=== PATIENT | male | born 1965 | race Caucasian/White ===

== ENCOUNTER → 2016-04-13 | Outpatient (CLI) | payer BC, OTHER ==
--- NOTE | 2016-04-14 02:44 | REP ---
Clinical: Pain. Technique: AP, lateral, bilateral oblique views of the right foot. Findings: Age-related degenerative changes primarily involving the phalanges and interphalangeal joints noted. Findings include extension at the metatarsophalangeal joints consistent with mild hammertoe deformity. No acute or healed fracture/dislocation identified. No significant soft tissue swelling. No subcutaneous emphysema or radiodense foreign body. Impression: Age-related degenerative changes as described above. Signed by Parth Sesay MD 04/14/2016 02:36 A
== END ==
LOC: M RAD 11:08
PROVIDERS: ATTEND Family Medicine
DX: M79.671 Pain in right foot (principal)

== ENCOUNTER → 2016-06-23 | Outpatient (CLI) | payer BC, OTHER ==
[2016-06-23 11:01] LABS: MEAN CORPUSCULAR HEMOGLOBIN 30.6 pg (27.0-33.0); MEAN CORPUSCULAR HGB CONC 33.9 g/dl (32.0-36.5); MEAN CORPUSCULAR VOLUME 90.2 fl (80.0-96.0); RED CELL DISTRIBUTION WIDTH 12.6 % (11.5-14.5); WHITE BLOOD COUNT 5.3 K/mm3 (4.0-10.0)
[2016-06-23 11:30] LABS: ALBUMIN 4.3 GM/DL (3.2-5.2); ALBUMIN/GLOBULIN RATIO 1.39 (1.00-1.93); ALKALINE PHOSPHATASE 68 U/L (45-117); ALT/SGPT 27 U/L (12-78); ANION GAP 7 MEQ/L (8-16); AST/SGOT 22 U/L (15-37); BLOOD UREA NITROGEN 21 MG/DL (7-18); CALCIUM LEVEL 8.9 MG/DL (8.5-10.1); CARBON DIOXIDE LEVEL 29 MEQ/L (21-32); CHLORIDE LEVEL 106 MEQ/L (98-107); CHOLESTEROL LEVEL 146 MG/DL (<200); CREATININE FOR GFR 1.02 MG/DL (0.70-1.30); GLOMERULAR FILTRATION RATE > 60.0 (>56); GLUCOSE, FASTING 101 MG/DL (70-105); POTASSIUM SERUM 4.4 MEQ/L (3.5-5.1); SODIUM LEVEL 142 MEQ/L (136-145); THYROXINE (T4) 9.4 UG/DL (4.5-12.0); TOTAL PROTEIN 7.4 GM/DL (6.4-8.2); TRIGLYCERIDES LEVEL 47 MG/DL (<150)
--- NOTE | 2016-06-24 12:39 | ECGEPIP ---
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
== END ==
LOC: M LAB 10:30
PROVIDERS: ATTEND Family Medicine
DX: D64.9 Anemia, unspecified (principal); R53.83 Other fatigue; E03.9 Hypothyroidism, unspecified

== ENCOUNTER → 2016-10-13 | Outpatient (CLI) | payer BC, OTHER ==
--- NOTE | 2016-10-14 04:55 | REP ---
Clinical: Pain . Technique: Internal rotation, external rotation, and Y view right shoulder . Findings: No acute fracture or dislocation. The acromioclavicular and glenohumeral joints are intact. No periarticular calcifications or degenerative changes are appreciated. Sub acromial space is normal. Surrounding soft tissues are unremarkable. Impression: Normal right shoulder radiographs. Signed by Parth Sesay MD 10/14/2016 04:48 A
== END ==
LOC: M RAD 16:41
PROVIDERS: ATTEND Family Medicine
DX: M25.511 Pain in right shoulder (principal)

== ENCOUNTER → 2017-02-08 | Outpatient (CLI) | payer BC, OTHER ==
--- NOTE | 2017-02-08 12:22 | REP ---
LEFT HIP, TWO VIEWS: HISTORY: Pain. COMPARISON: 12/04/2014. There is no acute fracture or dislocation. There is narrowing of the joint space with associated sclerosis of the acetabulum. IMPRESSION: Degenerative change as described above. Signed by Sathish Bojorquez MD 02/08/2017 12:25 P
== END ==
LOC: M RAD 11:04
PROVIDERS: ATTEND Family Medicine
DX: M16.12 Unilateral primary osteoarthritis, left hip (principal); M25.552 Pain in left hip

== ENCOUNTER → 2017-02-17 | Outpatient (CLI) | payer BC, OTHER ==
--- NOTE | 2017-02-18 08:40 | REP ---
MRI RIGHT SHOULDER WITHOUT CONTRAST: 02/17/2017 CLINICAL HISTORY: Shoulder pain and limited range of motion. COMPARISON: X-ray 10/13/2016. TECHNIQUE: Sagittal fat suppressed T2, coronal T1 with T2 fat suppressed and axial 3D gradient echo with T2 fat suppressed sequences. FINDINGS: There is some hypertrophic spurring inferiorly at the AC joint, but mild. This does not significantly indent the musculotendinous junction of the rotator cuff. There is some peripheral acromial spurring. This contributes to some bursal surface fraying on the supraspinatus. Trace amounts of fluid in the subacromial bursa. Some tendinopathy of the supraspinatus without a full-thickness tear, retraction of the tendon nor atrophy of its muscle belly. Linear intrasubstance signal does not communicate to the articular or bursal surface. There is hyperintense signal along the bursa about the inferior glenoid into the subcoracoid bursal regions and elsewhere at the joint suggesting some bursitis all around the joint. No significant glenohumeral joint effusion. There are small amounts of fluid there and in the subcoracoid bursa. Biceps tendon is seated in its groove, shows some mild fraying at its junction with the superior labrum. There is some labral degeneration superiorly and anteriorly. I cannot define a chepe tear on this study in the absence of a joint effusion or arthrographic contrast. There is also increased signal and irregularity of the inferior labral margin anteriorly consistent with degenerative change. No Hill-Sachs deformity. Subscapularis tendon and muscle are grossly intact. The infraspinatus and teres minor tendons and muscles are grossly intact. There is no bone bruise or fracture. The coracoclavicular coracohumeral ligaments are intact. The spinal glenoid notch shows no evidence of fluid collection or mass. IMPRESSION: 1. Minimal inferior spurring at the AC joint, but not causing any significant impingement at the musculotendinous junction of the rotator cuff. 2. Supraspinatus tendinopathy without a tear, retraction or atrophy of the muscle. 3. Biceps tendon intact within the bicipital groove and some signal irregularity of its junction with the superior labrum but no definite tear observed. 4. Labral degeneration. The possibility of a tear exist but cannot be confirmed in the absence of significant joint effusion or arthrographic contrast. 5. Bursitis around the joint and the infraglenoid bursa, subcoracoid bursa and subacromial bursa to lesser extent elsewhere. 6. Infraspinatus, teres minor and subscapularis tendons and muscles grossly intact. Coracoclavicular and coracohumeral ligaments intact. Signed by Joseph Patel MD 02/18/2017 06:40 P
== END ==
LOC: M RAD 15:22
PROVIDERS: ATTEND Family Medicine
DX: M25.711 Osteophyte, right shoulder (principal); M75.81 Other shoulder lesions, right shoulder; M75.51 Bursitis of right shoulder

== ENCOUNTER → 2017-11-26 | Outpatient (CLI) | payer BC, OTHER ==
[2017-11-28 11:15] LABS: HEPATITIS C VIRUS ABY INDEX 0.1 INDEX (<0.8)
[2017-11-28 11:15] LABS: HEPATITIS A ANTIBODY IGM NEGATIVE (NEGATIVE); HEPATITIS B CORE ANTIBODY IGM NEGATIVE (NEGATIVE); HEPATITIS B SURFACE ANTIGEN NEGATIVE (NEGATIVE); RUBELLA IgG QUALITATIVE IMMUNE (IMMUNE)
[2017-11-29 14:16] LABS: RUBEOLA IgG ANTIBODY 45.6 AU/mL (Immune >29.9)
[2017-11-29 14:16] LABS: MUMPS VIRUS IgG ANTIBODY <9.0 AU/mL (Immune >10.9)
== END ==
LOC: M LAB 14:20
DX: Z01.84 Encounter for antibody response examination (principal)
CPT/HCPCS: 86762

== ENCOUNTER 2018-04-18 11:44 | Emergency (ER) | payer BC, OTHER ==
[~2018-04-18] VITALS: Ht 188 cm; Wt 77.3 kg
[2018-04-18] MEDS ORDERED: HUMI40KI2 (11:53)
[2018-04-18 12:28] LABS: BASO # 0.1 10^3/uL (0.0-0.2); BASO % 0.5 % (0.0-1.0); EOS # 0.1 10^3/uL (0.0-0.50); HEMATOCRIT 46.8 % (42.0-52.0); HEMOGLOBIN 16.3 g/dl (13.5-17.5); LYMPH # 1.5 10^3/uL (1.5-4.5); LYMPH % 10.6 % (24.0-44.0); MEAN CORPUSCULAR HEMOGLOBIN 30.9 pg (27.0-33.0); MEAN CORPUSCULAR HGB CONC 34.8 g/dl (32.0-36.5); MEAN CORPUSCULAR VOLUME 88.8 fl (80.0-96.0); MONO # 0.6 10^3/uL (0.0-0.8); MONO % 4.4 % (0.0-5.0); NEUTROPHILS # 11.5 10^3/uL (1.8-7.7); NEUTROPHILS % 83.1 % (36.0-66.0); PLATELET COUNT, AUTOMATED 186 10^3/uL (150-450); RED BLOOD COUNT 5.27 10^6/uL (4.30-6.10); WHITE BLOOD COUNT 13.8 10^3/uL (4.0-10.0)
[2018-04-18] MEDS ORDERED: ONDANSETRON 4MG/2ML VIAL (J2405) IV ONE (12:45)
[2018-04-18] MEDS ORDERED: KETOROLAC 30 MG/ML VIAL (J1885) IV ONE (12:45)
[2018-04-18 13:00] LABS: ALBUMIN 4.6 GM/DL (3.2-5.2); ALT/SGPT 28 U/L (12-78); BILIRUBIN,DIRECT 0.2 MG/DL (0.0-0.2); BILIRUBIN,TOTAL 0.9 MG/DL (0.2-1.0); BLOOD UREA NITROGEN 16 MG/DL (7-18); CALCIUM LEVEL 9.5 MG/DL (8.5-10.1); CARBON DIOXIDE LEVEL 26 MEQ/L (21-32); CHLORIDE LEVEL 103 MEQ/L (98-107); CREATININE FOR GFR 1.12 MG/DL (0.70-1.30); GLOMERULAR FILTRATION RATE > 60.0 (>56); GLUCOSE, FASTING 135 MG/DL (70-100); LIPASE 120 U/L (73-393); POTASSIUM SERUM 3.5 MEQ/L (3.5-5.1); SODIUM LEVEL 139 MEQ/L (136-145); TOTAL PROTEIN 7.9 GM/DL (6.4-8.2); URIC ACID 5.1 MG/DL (3.5-7.2)
--- NOTE | 2018-04-18 14:04 | REP ---
CT abdomen and pelvis without IV or oral contrast: History: Right-sided renal colic. No comparison CT study. 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 The lung bases are clear on axial CT images. The liver is normal in size homogeneous in texture. No splenic abnormality is seen. Normal adrenal glands are noted bilaterally. No pancreatic abnormality is observed. The gallbladder is unremarkable. There is mild to moderate right-sided hydronephrosis and hydroureter. This is due to a 5 mm distal ureteral calculus just above the ureterovesical junction. No other urinary tract calculus is appreciated. No bladder calculus is seen. No abdominal or pelvic adenopathy or mass lesion is observed. Impression: 5 mm obstructive distal ureteral calculus on the right with mild right-sided hydronephrosis and hydroureter. Otherwise negative. Electronically Signed by Wilfrid Worthy MD 04/18/2018 08:38 P
[2018-04-18] MEDS ORDERED: ONDA4TAB6 PO (14:58)
[2018-04-18] MEDS ORDERED: NORCOTAB PO (14:58)
[2018-04-18] MEDS ORDERED: FLOM0.4C39 PO (14:58)
[2018-04-18 15:20] VITALS: BP 146/69
== END 2018-04-18 15:22 | disposition home or self-care (01) ==
LOC: M ED 11:44
DX: N20.1 Calculus of ureter (principal); L40.50 Arthropathic psoriasis, unspecified; Z79.899 Other long term (current) drug therapy; Z88.1 Allergy status to other antibiotic agents
CPT/HCPCS: 36415; 74176; 80048; 80076; 81001; 83690; 84550; 85025; 96374; 96375; 99284; J1885; J2405

== ENCOUNTER → 2018-07-05 | Outpatient (CLI) | payer BC, OTHER ==
[~2018-07-05] MED LIST: FLOM0.4C39 PO; HUMI40KI2; HYDR-3715 PO; ONDA4TAB6 PO
--- NOTE | 2018-07-05 15:37 | REP ---
RIGHT SHOULDER SERIES: Three views of the right shoulder are performed. There is no acute fracture or dislocation. No intrinsic osseous pathology is seen. Joint spaces appear unremarkable. IMPRESSION: Negative exam right shoulder. Recommend MRI to further evaluate if clinically indicated. Electronically Signed by Demian Carpenter MD 07/06/2018 11:01 A
== END ==
LOC: M RAD 14:12
PROVIDERS: ATTEND Family Medicine
DX: M25.511 Pain in right shoulder (principal)

== ENCOUNTER → 2018-09-06 | Outpatient (CLI) | payer BC, OTHER ==
--- NOTE | 2018-09-06 12:29 | REP ---
Clinical: Pain. Technique: AP, lateral, bilateral oblique views of the right hand. Findings: No acute fracture dislocation. Skeletal structures, joint spaces, and surrounding soft tissues appear relatively normal for age. No overt osteoarthritic findings noted. Impression: Age-appropriate right hand radiographs. Electronically Signed by Parth Sesay MD 09/06/2018 12:21 P
--- NOTE | 2018-09-06 12:42 | REP ---
Clinical: Left knee pain. Technique: AP, lateral, bilateral oblique and sunrise views of the left knee. Findings: Generalized age-related changes are appreciated without overt osteoarthritic findings. No acute fracture dislocation. No definite effusion. Impression: Generalized age-related changes by radiographic evaluation. Electronically Signed by Parth Sesay MD 09/06/2018 12:34 P
== END ==
LOC: M RAD 11:29
PROVIDERS: ATTEND Family Medicine
DX: M79.641 Pain in right hand (principal); M17.12 Unilateral primary osteoarthritis, left knee

== ENCOUNTER → 2020-01-23 | Outpatient (CLI) | payer BC, OTHER ==
[2020-01-23 11:20] LABS: HEMATOCRIT 46.4 % (42.0-52.0); HEMOGLOBIN 15.6 g/dl (13.5-17.5); MEAN CORPUSCULAR HEMOGLOBIN 30.8 pg (27.0-33.0); MEAN CORPUSCULAR HGB CONC 33.6 g/dl (32.0-36.5); MEAN CORPUSCULAR VOLUME 91.7 fl (80.0-96.0); PLATELET COUNT, AUTOMATED 178 10^3/uL (150-450); RED BLOOD COUNT 5.06 10^6/uL (4.30-6.10); WHITE BLOOD COUNT 6.2 10^3/uL (4.0-10.0)
[2020-01-23 11:43] LABS: HEMOGLOBIN A1c 5.3 %
[2020-01-23 11:51] LABS: ALBUMIN 4.2 GM/DL (3.2-5.2); ALT/SGPT 36 U/L (12-78); BILIRUBIN,TOTAL 1.1 MG/DL (0.2-1.0); BLOOD UREA NITROGEN 19 MG/DL (7-18); CALCIUM LEVEL 9.2 MG/DL (8.5-10.1); CARBON DIOXIDE LEVEL 31 MEQ/L (21-32); CHLORIDE LEVEL 108 MEQ/L (98-107); CHOLESTEROL LEVEL 170 MG/DL (<200); CHOLESTEROL RISK RATIO 2.786 (<5); CREATININE FOR GFR 1.08 MG/DL (0.70-1.30); GLOMERULAR FILTRATION RATE > 60.0 (>56); GLUCOSE, FASTING 92 MG/DL (70-100); HDL CHOLESTEROL 61 MG/DL (>40); LDL CHOLESTEROL 101 MG/DL (<100); NON-HDL-C 109 MG/DL; POTASSIUM SERUM 4.3 MEQ/L (3.5-5.1); PROSTATIC SPECIFIC AG MONITOR 0.54 NG/ML (< 4.00); SODIUM LEVEL 143 MEQ/L (136-145); TESTOSTERONE 689 NG/DL (241-827); TOTAL 25(OH) VITAMIN D 24.4 NG/ML (30.0-100.0); TOTAL PROTEIN 7.1 GM/DL (6.4-8.2); TRIGLYCERIDES LEVEL 39 MG/DL (<150)
--- NOTE | 2020-01-23 17:25 | ECGEPIP ---
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
--- NOTE | 2020-01-24 03:15 | REP ---
INDICATION: ANEMIA, FATIGUE COMPARISON: None. TECHNIQUE: PA and lateral. FINDINGS: The mediastinum and cardiac silhouette are normal. The lung grider are clear and without acute consolidation, effusion, or pneumothorax. The skeletal structures are intact and normal. IMPRESSION: No acute cardiopulmonary process. <Electronically signed by Parth Sesay > 01/24/20 [id number]
== END ==
LOC: M LAB 10:30
PROVIDERS: ATTEND Family Medicine
DX: D64.9 Anemia, unspecified (principal); R53.83 Other fatigue; E03.9 Hypothyroidism, unspecified

== ENCOUNTER → 2020-04-11 | Outpatient (CLI) | payer BC, OTHER ==
[2020-04-11 10:51] LABS: HEMATOCRIT 44.5 % (42.0-52.0); HEMOGLOBIN 14.7 g/dl (13.5-17.5); MEAN CORPUSCULAR HEMOGLOBIN 30.6 pg (27.0-33.0); MEAN CORPUSCULAR VOLUME 92.5 fl (80.0-96.0); PLATELET COUNT, AUTOMATED 160 10^3/uL (150-450); RED BLOOD COUNT 4.81 10^6/uL (4.30-6.10); WHITE BLOOD COUNT 6.2 10^3/uL (4.0-10.0)
[2020-04-11 11:09] LABS: HEMOGLOBIN A1c 5.5 %
[2020-04-11 11:34] LABS: ALBUMIN 4.1 GM/DL (3.2-5.2); ALT/SGPT 37 U/L (12-78); BILIRUBIN,TOTAL 0.8 MG/DL (0.2-1.0); BLOOD UREA NITROGEN 18 MG/DL (7-18); CALCIUM LEVEL 9.2 MG/DL (8.5-10.1); CARBON DIOXIDE LEVEL 33 MEQ/L (21-32); CHLORIDE LEVEL 104 MEQ/L (98-107); CHOLESTEROL LEVEL 182 MG/DL (<200); CREATININE FOR GFR 1.02 MG/DL (0.70-1.30); GLOMERULAR FILTRATION RATE > 60.0 (>56); GLUCOSE, FASTING 95 MG/DL (70-100); HDL CHOLESTEROL 54 MG/DL (>40); IRON (FE) 146 UG/DL (65-175); LDL CHOLESTEROL 114 MG/DL (<100); NON-HDL-C 128 MG/DL; PERCENT SATURATION 46.5 % (19.7-50.0); SODIUM LEVEL 142 MEQ/L (136-145); TOTAL IRON BINDING CAPACITY 314 UG/DL (250-450); TRIGLYCERIDES LEVEL 68 MG/DL (<150)
[2020-04-11 11:35] LABS: TOTAL 25(OH) VITAMIN D 41.3 NG/ML (30.0-100.0); VITAMIN B12 LEVEL 803 PG/ML (247-911)
[2020-04-11 11:40] LABS: FOLATE 14.8 NG/ML (>5.4)
--- NOTE | 2020-04-11 17:01 | ECGEPIP ---
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
== END ==
LOC: M LAB 10:05
PROVIDERS: ATTEND Family Medicine
DX: E03.9 Hypothyroidism, unspecified (principal); R53.83 Other fatigue; D64.9 Anemia, unspecified

== ENCOUNTER → 2020-05-14 | Outpatient (CLI) | payer BC, OTHER ==
[2020-05-14 11:55] LABS: BLOOD UREA NITROGEN 15 MG/DL (7-18); CREATININE FOR GFR 1.03 MG/DL (0.70-1.30); GLOMERULAR FILTRATION RATE > 60.0 (>56); RHEUMATOID FACTOR QUANT < 10.0 IU/ML (<15.0)
[2020-05-14 12:05] LABS: VITAMIN B12 LEVEL 1139 PG/ML (247-911)
[2020-05-14 12:06] LABS: FOLATE > 24.0 NG/ML (>5.4)
== END ==
LOC: M LAB 10:56
PROVIDERS: ATTEND Psychiatry & Neurology Neurology
DX: G35 Multiple sclerosis (principal); N18.9 Chronic kidney disease, unspecified; G04.91 Myelitis, unspecified

== ENCOUNTER 2020-06-09 14:23 | Outpatient (CLI) | payer BC, OTHER ==
[~2020-06-09] VITALS: Ht 185.4 cm; Wt 77.2 kg
[2020-06-09 14:29] VITALS: BP 136/79
[2020-06-09 15:53] VITALS: BP 140/79
[2020-06-09] MEDS ORDERED: methylPREDNISolone 1,000 MG, VIAL MATE ADAPTER 1 EACH in NS 250 ML IV ONE (16:00)
== END 2020-06-09 15:54 | disposition home or self-care (01) ==
LOC: M INFU 14:23
PROVIDERS: ATTEND Psychiatry & Neurology Neurology
DX: G35 Multiple sclerosis (principal); Z88.1 Allergy status to other antibiotic agents
CPT/HCPCS: 96365; J2930

== ENCOUNTER 2020-06-10 16:21 | Outpatient (CLI) | payer BC, OTHER ==
[~2020-06-10] VITALS: Ht 185.4 cm; Wt 77.2 kg
[~2020-06-10 16:21] MED LIST changes: +methylPREDNISolone 1,000 MG, VIAL MATE ADAPTER 1 EACH in NS 250 ML IV ONE
[2020-06-10 16:49] VITALS: BP 150/75
[2020-06-10 17:36] VITALS: BP 136/68
== END 2020-06-10 17:37 | disposition home or self-care (01) ==
LOC: M INFU 16:21
PROVIDERS: ATTEND Psychiatry & Neurology Neurology
DX: G35 Multiple sclerosis (principal); Z88.1 Allergy status to other antibiotic agents
CPT/HCPCS: 96365; J2930

== ENCOUNTER 2020-06-11 10:43 | Outpatient (CLI) | payer BC, OTHER ==
[~2020-06-11] VITALS: Ht 185.4 cm; Wt 77.2 kg
[2020-06-11 10:59] VITALS: BP 129/66
[2020-06-11 12:13] VITALS: BP 135/75
== END 2020-06-11 12:05 | disposition home or self-care (01) ==
LOC: M INFU 10:43
PROVIDERS: ATTEND Psychiatry & Neurology Neurology
DX: G35 Multiple sclerosis (principal); Z88.1 Allergy status to other antibiotic agents
CPT/HCPCS: 96365; J2930

== ENCOUNTER 2020-06-12 15:48 | Outpatient (CLI) | payer BC, OTHER ==
[~2020-06-12] VITALS: Ht 185.4 cm; Wt 77.2 kg
[~2020-06-12 15:48] MED LIST changes: -methylPREDNISolone 1,000 MG, VIAL MATE ADAPTER 1 EACH in NS 250 ML IV ONE
[2020-06-12 15:53] VITALS: BP 137/74
[2020-06-12] MEDS ORDERED: methylPREDNISolone 1,000 MG, VIAL MATE ADAPTER 1 EACH in NS 250 ML IV ONE (16:00)
[2020-06-12 17:00] VITALS: BP 139/65
== END 2020-06-12 17:00 | disposition home or self-care (01) ==
LOC: M INFU 15:48
PROVIDERS: ATTEND Psychiatry & Neurology Neurology
DX: G35 Multiple sclerosis (principal); Z88.1 Allergy status to other antibiotic agents
CPT/HCPCS: 96365; J2930

== ENCOUNTER 2020-06-13 16:13 | Outpatient (CLI) | payer BC, OTHER ==
[~2020-06-13] VITALS: Ht 185.4 cm; Wt 77.2 kg
[~2020-06-13 16:13] MED LIST changes: +methylPREDNISolone 1,000 MG, VIAL MATE ADAPTER 1 EACH in NS 250 ML IV ONE
[2020-06-13 16:25] VITALS: BP 141/75
[2020-06-13 17:35] VITALS: BP 151/77
== END 2020-06-13 17:35 | disposition home or self-care (01) ==
LOC: M INFU 16:13
PROVIDERS: ATTEND Psychiatry & Neurology Neurology
DX: G35 Multiple sclerosis (principal); Z88.1 Allergy status to other antibiotic agents
CPT/HCPCS: 96365; J2930

== ENCOUNTER → 2020-06-18 | Outpatient (CLI) | payer BC, OTHER ==
[~2020-06-18] MED LIST changes: -methylPREDNISolone 1,000 MG, VIAL MATE ADAPTER 1 EACH in NS 250 ML IV ONE
[2020-06-18 14:05] LABS: BASO % 0.3 % (0.0-1.0); EOS # 0.1 10^3/uL (0.0-0.5); EOS % 1.2 % (0.0-3.0); HEMATOCRIT 45.9 % (42.0-52.0); HEMOGLOBIN 15.7 g/dl (13.5-17.5); LYMPH # 2.3 10^3/uL (1.5-5.0); MEAN CORPUSCULAR HGB CONC 34.2 g/dl (32.0-36.5); MEAN CORPUSCULAR VOLUME 90.7 fl (80.0-96.0); MONO # 0.6 10^3/uL (0.0-0.8); MONO % 6.2 % (2.0-8.0); NEUTROPHILS # 6.8 10^3/uL (1.5-8.5); NEUTROPHILS % 66.4 % (36.0-66.0); PLATELET COUNT, AUTOMATED 200 10^3/uL (150-450); RED BLOOD COUNT 5.06 10^6/uL (4.30-6.10); WHITE BLOOD COUNT 10.3 10^3/uL (4.0-10.0)
[2020-06-18 14:42] LABS: ALBUMIN 4.1 GM/DL (3.2-5.2); ALT/SGPT 50 U/L (12-78); BILIRUBIN,TOTAL 0.4 MG/DL (0.2-1.0); BLOOD UREA NITROGEN 19 MG/DL (7-18); CALCIUM LEVEL 9.2 MG/DL (8.5-10.1); CARBON DIOXIDE LEVEL 30 MEQ/L (21-32); CHLORIDE LEVEL 106 MEQ/L (98-107); CREATININE FOR GFR 0.91 MG/DL (0.70-1.30); GLOMERULAR FILTRATION RATE > 60.0 (>56); GLUCOSE, FASTING 101 MG/DL (70-100); SODIUM LEVEL 140 MEQ/L (136-145); TOTAL PROTEIN 6.8 GM/DL (6.4-8.2)
== END ==
LOC: M LAB 13:26
PROVIDERS: ATTEND Psychiatry & Neurology Neurology
DX: G35 Multiple sclerosis (principal)

== ENCOUNTER → 2021-04-21 | Outpatient (CLI) | payer BC, OTHER ==
[2021-04-21 15:44] LABS: RHEUMATOID FACTOR QUANT < 10.0 IU/ML (<15.0); URIC ACID 4.8 MG/DL (3.5-7.2)
== END ==
LOC: M RAD 14:34
PROVIDERS: ATTEND Family Medicine
DX: M79.672 Pain in left foot (principal)

== ENCOUNTER → 2021-10-07 | Outpatient (CLI) | payer BC, OTHER ==
[2021-10-07 11:59] LABS: HEMATOCRIT 44.4 % (42.0-52.0); HEMOGLOBIN 14.8 g/dl (13.5-17.5); MEAN CORPUSCULAR HEMOGLOBIN 29.9 pg (27.0-33.0); MEAN CORPUSCULAR HGB CONC 33.3 g/dl (32.0-36.5); MEAN CORPUSCULAR VOLUME 89.7 fl (80.0-96.0); PLATELET COUNT, AUTOMATED 175 10^3/uL (150-450); RED BLOOD COUNT 4.95 10^6/uL (4.30-6.10); WHITE BLOOD COUNT 5.5 10^3/uL (4.0-10.0)
[2021-10-07 13:03] LABS: ALT/SGPT 26 U/L (12-78); BILIRUBIN,TOTAL 0.6 MG/DL (0.2-1.0); BLOOD UREA NITROGEN 16 MG/DL (7-18); CALCIUM LEVEL 9.2 MG/DL (8.5-10.1); CARBON DIOXIDE LEVEL 29 MEQ/L (21-32); CHLORIDE LEVEL 106 MEQ/L (98-107); CHOLESTEROL LEVEL 155 MG/DL (<200); CHOLESTEROL RISK RATIO 2.348 (<5); CREATININE FOR GFR 1.04 MG/DL (0.70-1.30); GLOMERULAR FILTRATION RATE > 60.0 (>56); GLUCOSE, FASTING 86 MG/DL (70-100); HDL CHOLESTEROL 66 MG/DL (>40); LDL CHOLESTEROL 79 MG/DL (<100); NON-HDL-C 89 MG/DL; POTASSIUM SERUM 4.3 MEQ/L (3.5-5.1); PROSTATIC SPECIFIC AG MONITOR 0.59 NG/ML (< 4.00); SODIUM LEVEL 140 MEQ/L (136-145); TOTAL PROTEIN 6.9 GM/DL (6.4-8.2); TRIGLYCERIDES LEVEL 50 MG/DL (<150)
[2021-10-07 13:24] LABS: TESTOSTERONE 467 NG/DL (241-827)
[2021-10-07 13:28] LABS: HEMOGLOBIN A1c 5.2 %
== END ==
LOC: M LAB 10:54
PROVIDERS: ATTEND Family Medicine
DX: R53.83 Other fatigue (principal); E03.9 Hypothyroidism, unspecified; D64.9 Anemia, unspecified

== ENCOUNTER 2022-07-22 17:33 | Emergency (ER) | payer BC, OTHER ==
[~2022-07-22] VITALS: Ht 188 cm; Wt 75.9 kg
[2022-07-22 19:25] LABS: BASO # 0.1 10^3/uL (0.0-0.2); BASO % 0.8 % (0.0-1.0); EOS # 0.2 10^3/uL (0.0-0.5); EOS % 2.6 % (0.0-3.0); HEMATOCRIT 45.4 % (42.0-52.0); HEMOGLOBIN 15.5 g/dl (13.5-17.5); LYMPH # 2.4 10^3/uL (1.5-5.0); LYMPH % 30.7 % (24.0-44.0); MEAN CORPUSCULAR HEMOGLOBIN 30.6 pg (27.0-33.0); MEAN CORPUSCULAR HGB CONC 34.1 g/dl (32.0-36.5); MEAN CORPUSCULAR VOLUME 89.7 fl (80.0-96.0); MONO # 0.5 10^3/uL (0.0-0.8); MONO % 6.2 % (2.0-8.0); NEUTROPHILS # 4.6 10^3/uL (1.5-8.5); NEUTROPHILS % 59.4 % (36.0-66.0); PLATELET COUNT, AUTOMATED 189 10^3/uL (150-450); RED BLOOD COUNT 5.06 10^6/uL (4.30-6.10); WHITE BLOOD COUNT 7.8 10^3/uL (4.0-10.0)
[2022-07-22 19:47] LABS: BLOOD UREA NITROGEN 23 MG/DL (9-23); CALCIUM LEVEL 9.3 MG/DL (8.5-10.1); CARBON DIOXIDE LEVEL 28 MMOL/L (20-31); CHLORIDE LEVEL 103 MMOL/L (98-107); CREATININE FOR GFR 0.98 MG/DL (0.70-1.30); GLOMERULAR FILTRATION RATE > 60.0 (>56); GLUCOSE, FASTING 99 MG/DL (60-100); POTASSIUM SERUM 3.9 MMOL/L (3.5-5.1); SODIUM LEVEL 141 MMOL/L (136-145)
[2022-07-22 23:20] VITALS: BP 115/69
== END 2022-07-22 23:22 | disposition home or self-care (01) ==
LOC: M ED 17:33
DX: H43.811 Vitreous degeneration, right eye (principal); H43.391 Other vitreous opacities, right eye; Z88.1 Allergy status to other antibiotic agents; Z79.1 Long term (current) use of non-steroidal anti-inflammatories (NSAID); Z79.83 Long term (current) use of bisphosphonates; Z79.899 Other long term (current) drug therapy

== ENCOUNTER 2023-05-06 00:49 | Emergency (ER) | payer BC, OTHER ==
[~2023-05-06] VITALS: Ht 188 cm; Wt 80.0 kg
[2023-05-06 00:51] VITALS: BP 129/84; TEMP 96.8; O2SAT 99
[2023-05-06] MEDS ORDERED: CICL6.6S (00:56)
== END 2023-05-06 04:04 | disposition home or self-care (01) ==
LOC: M ED 00:49
DX: R22.42 Localized swelling, mass and lump, left lower limb (principal); Z88.1 Allergy status to other antibiotic agents; Z79.899 Other long term (current) drug therapy

== ENCOUNTER → 2023-05-16 | Outpatient (CLI) | payer BC ==
[~2023-05-16] MED LIST changes: +CICL6.6S
[2023-05-16 14:39] LABS: BASO # 0.1 10^3/uL (0.0-0.2); BASO % 0.8 % (0.0-1.0); EOS # 0.1 10^3/uL (0.0-0.5); EOS % 1.7 % (0.0-3.0); HEMATOCRIT 45.4 % (42.0-52.0); HEMOGLOBIN 15.2 g/dl (13.5-17.5); LYMPH # 1.4 10^3/uL (1.5-5.0); LYMPH % 16.5 % (24.0-44.0); MEAN CORPUSCULAR HEMOGLOBIN 30.4 pg (27.0-33.0); MEAN CORPUSCULAR HGB CONC 33.5 g/dl (32.0-36.5); MEAN CORPUSCULAR VOLUME 90.8 fl (80.0-96.0); MONO # 0.4 10^3/uL (0.0-0.8); MONO % 5.3 % (2.0-8.0); NEUTROPHILS # 6.3 10^3/uL (1.5-8.5); NEUTROPHILS % 75.5 % (36.0-66.0); PLATELET COUNT, AUTOMATED 188 10^3/uL (150-450); WHITE BLOOD COUNT 8.4 10^3/uL (4.0-10.0)
[2023-05-16 14:42] LABS: C REACTIVE PROTEIN QUANTITATIV < 0.40 MG/DL (<1.0)
[2023-05-16 14:44] LABS: ALBUMIN 4.2 G/DL (3.2-5.2); ALKALINE PHOSPHATASE 66 U/L (46-116); ALT/SGPT 22 U/L (7.0-40); AST/SGOT 23 U/L (<34); BILIRUBIN,TOTAL 0.8 MG/DL (0.3-1.2); BLOOD UREA NITROGEN 23 MG/DL (9-23); CALCIUM LEVEL 8.6 MG/DL (8.5-10.1); CARBON DIOXIDE LEVEL 30 MMOL/L (20-31); CHLORIDE LEVEL 106 MMOL/L (98-107); CREATININE FOR GFR 0.89 MG/DL (0.70-1.30); GLOMERULAR FILTRATION RATE > 60.0 (>56); GLUCOSE, FASTING 97 MG/DL (60-100); POTASSIUM SERUM 4.1 MMOL/L (3.5-5.1); RHEUMATOID FACTOR QUANT < 3.5 IU/ML (<14); SODIUM LEVEL 140 MMOL/L (136-145); TOTAL PROTEIN 6.8 G/DL (5.7-8.2)
[2023-05-16 14:51] LABS: URIC ACID 5.3 MG/DL (3.7-9.2)
[2023-05-16 14:53] LABS: ERYTHROCYTE SEDIMENTATION RATE 14 mm/hr (0-20)
== END ==
LOC: M PLALAB 10:52
PROVIDERS: ATTEND Student in an Organized Health Care Education/Training Program
DX: M25.462 Effusion, left knee (principal)

== ENCOUNTER → 2023-08-18 | Outpatient (CLI) | payer BC ==
[~2023-08-18] MED LIST changes: +ONDA-282 PO; -ONDA4TAB6 PO; +PROHANCE 279.3MG/ML 15ML VIAL As Ordered ONE
== END ==
LOC: M RAD 12:44
PROVIDERS: ATTEND Student in an Organized Health Care Education/Training Program
DX: M67.432 Ganglion, left wrist (principal)
CPT/HCPCS: 73223; A9576

== ENCOUNTER → 2023-10-07 | Outpatient (CLI) | payer BC ==
[~2023-10-07] MED LIST changes: -PROHANCE 279.3MG/ML 15ML VIAL As Ordered ONE
[2023-10-07 10:56] LABS: HEMATOCRIT 43.7 % (42.0-52.0); MEAN CORPUSCULAR HEMOGLOBIN 31.1 pg (27.0-33.0); MEAN CORPUSCULAR HGB CONC 34.3 g/dl (32.0-36.5); MEAN CORPUSCULAR VOLUME 90.7 fl (80.0-96.0); PLATELET COUNT, AUTOMATED 168 10^3/uL (150-450); RED BLOOD COUNT 4.82 10^6/uL (4.30-6.10); WHITE BLOOD COUNT 5.9 10^3/uL (4.0-10.0)
[2023-10-07 11:25] LABS: HEMOGLOBIN A1c 5.2 % (4.0-6.0)
[2023-10-07 11:28] LABS: ALBUMIN 3.9 G/DL (3.2-5.2); ALKALINE PHOSPHATASE 67 U/L (46-116); ALT/SGPT 21 U/L (7.0-40); AST/SGOT 18 U/L (<34); BILIRUBIN,TOTAL 1.1 MG/DL (0.3-1.2); BLOOD UREA NITROGEN 18 MG/DL (9-23); CARBON DIOXIDE LEVEL 30 MMOL/L (20-31); CHLORIDE LEVEL 107 MMOL/L (98-107); CHOLESTEROL LEVEL 152 MG/DL (<200); CREATININE FOR GFR 1.03 MG/DL (0.70-1.30); GLOMERULAR FILTRATION RATE > 60.0 (>56); GLUCOSE, FASTING 92 MG/DL (60-100); HDL CHOLESTEROL 47.4 MG/DL (>40); LDL CHOLESTEROL 94.8 MG/DL (<100); NON-HDL-C 104.6 MG/DL; POTASSIUM SERUM 4.1 MMOL/L (3.5-5.1); PROSTATIC SPECIFIC AG MONITOR 0.48 NG/ML (< 4.00); SODIUM LEVEL 140 MMOL/L (136-145); TOTAL PROTEIN 6.5 G/DL (5.7-8.2); TRIGLYCERIDES LEVEL 49 MG/DL (<150)
[2023-10-07 11:30] LABS: TESTOSTERONE 527 NG/DL (241-827); TOTAL 25(OH) VITAMIN D 50.6 NG/ML (20.0-100.0)
== END ==
LOC: M LAB 10:12
PROVIDERS: ATTEND Family Medicine
DX: D64.9 Anemia, unspecified (principal); E03.9 Hypothyroidism, unspecified; R53.83 Other fatigue

== ENCOUNTER → 2024-02-20 | Outpatient (CLI) | payer BC ==
[2024-02-20 10:25] LABS: HEMOGLOBIN 15.3 g/dl (13.5-17.5); MEAN CORPUSCULAR HEMOGLOBIN 30.7 pg (27.0-33.0); MEAN CORPUSCULAR VOLUME 90.4 fl (80.0-96.0); PLATELET COUNT, AUTOMATED 195 10^3/uL (150-450); RED BLOOD COUNT 4.98 10^6/uL (4.30-6.10); WHITE BLOOD COUNT 5.7 10^3/uL (4.0-10.0)
[2024-02-20 10:32] LABS: HEMOGLOBIN A1c 5.4 % (4.0-6.0)
[2024-02-20 10:36] LABS: INR 0.99; PROTHROMBIN TIME 13.4 SECONDS (12.5-14.5)
[2024-02-20 10:49] LABS: ALBUMIN 3.9 G/DL (3.2-5.2); ALKALINE PHOSPHATASE 75 U/L (40-129); ALT/SGPT 25 U/L (7.0-40); AMYLASE 94 U/L (30-118); AST/SGOT 26 U/L (<34); BILIRUBIN,TOTAL 1.1 MG/DL (0.3-1.2); BLOOD UREA NITROGEN 19 MG/DL (9-23); CALCIUM LEVEL 9.4 MG/DL (8.5-10.1); CARBON DIOXIDE LEVEL 30 MMOL/L (20-31); CHLORIDE LEVEL 106 MMOL/L (98-107); CHOLESTEROL LEVEL 168 MG/DL (<200); CHOLESTEROL RISK RATIO 3.29 (<5); CREATININE FOR GFR 0.96 MG/DL (0.70-1.30); GLOMERULAR FILTRATION RATE > 60.0 (>56); GLUCOSE, FASTING 94 MG/DL (60-100); LDL CHOLESTEROL 109.6 MG/DL (<100); POTASSIUM SERUM 4.3 MMOL/L (3.5-5.1); PROSTATIC SPECIFIC AG MONITOR 0.81 NG/ML (< 4.00); SODIUM LEVEL 142 MMOL/L (136-145); TOTAL PROTEIN 7.1 G/DL (5.7-8.2); TRIGLYCERIDES LEVEL 37 MG/DL (<150)
[2024-02-20 10:51] LABS: THYROID STIMULATING HORMONE 3.619 uIU/ML (0.55-4.78)
[2024-02-20 10:52] LABS: TOTAL 25(OH) VITAMIN D 65.1 NG/ML (20.0-100.0)
== END ==
LOC: M RAD 08:32
PROVIDERS: ATTEND Family Medicine
DX: D64.9 Anemia, unspecified (principal); R53.83 Other fatigue; E03.9 Hypothyroidism, unspecified

== ENCOUNTER → 2024-03-19 | Outpatient (CLI) | payer BC | LOC: M RAD 09:43 | PROVIDERS: ATTEND Family Medicine | DX: R10.11 Right upper quadrant pain (principal); R93.3 Abnormal findings on diagnostic imaging of other parts of digestive tract ==

== ENCOUNTER → 2024-07-15 | Outpatient (CLI) | payer BC ==
[~2024-07-15] MED LIST changes: -FLOM0.4C39 PO; +TAMS-18 PO
== END ==
LOC: M SLEEP 20:00
PROVIDERS: ATTEND Physician Assistant
DX: R40.0 Somnolence (principal); R06.83 Snoring

== ENCOUNTER → 2024-11-29 | Outpatient (REF) | payer BC | LOC: M SFHCDERM 07:38 | PROVIDERS: ATTEND Physician Assistant | DX: D49.2 Neoplasm of unspecified behavior of bone, soft tissue, and skin (principal) ==

== ENCOUNTER 2025-02-12 08:36 | Day surgery (SDC) | payer BC ==
[~2025-02-12] VITALS: Ht 188 cm; Wt 78.5 kg
[~2025-02-12 08:36] MED LIST changes: +LIDOCAINE 2% 100 MG/5 ML SDV (FOR ANES.) As Ordered ONE; +ONDANSETRON 4MG/2ML VIAL As Ordered ONE; +dexAMETHasone 4 MG/ML 1 ML VIAL As Ordered ONE
[2025-02-12] MEDS ORDERED: LR 1,000 ML IV SCH (08:40)
[2025-02-12] MEDS ORDERED: MIDAZOLAM INJ 2 MG/2 ML VIAL As Ordered ONE (09:20)
[2025-02-12] MEDS: SCOPOLAMINE 1MG TRANSDERMAL PATCH TOP ONE (09:26)
[2025-02-12] MEDS: LIDOCAINE W/EPINEPHrine 1% 20 ML VIAL As Ordered ONE (09:52)
[2025-02-12] MEDS: METHYLENE BLUE 0.5% (5 MG/ML) 10 ML AMP As Ordered ONE (10:00)
[2025-02-12] MEDS: OXYMETAZOLINE 0.05% NASAL SPRAY As Ordered ONE (10:01)
[2025-02-12] MEDS ORDERED: ROCURONIUM BROMIDE 50MG/5ML VIAL As Ordered ONE (10:17)
[2025-02-12] MEDS ORDERED: SUGAMMADEX SODIUM 200 MG/2 ML VIAL As Ordered ONE (10:22)
[2025-02-12] MEDS ORDERED: MORPHINE 2 MG/ML 1 ML VIAL IV PRN (10:45)
[2025-02-12] MEDS ORDERED: HYDROMORPHONE HCL 0.5 MG/0.5 ML SYRINGE As Ordered ONE (10:48)
[2025-02-12] MEDS: HYDROMORPHONE HCL 0.5 MG/0.5 ML SYRINGE IV PRN (10:49)
[2025-02-12] MEDS: ONDANSETRON 4MG/2ML VIAL IV PRN (10:59)
[2025-02-12 12:10] VITALS: BP 164/76; TEMP 98.1; O2SAT 99
== END 2025-02-12 12:53 | disposition home or self-care (01) ==
LOC: M SDC 08:36
PROVIDERS: ATTEND Otolaryngology
DX: J34.2 Deviated nasal septum (principal); J34.3 Hypertrophy of nasal turbinates; J34.89 Other specified disorders of nose and nasal sinuses
CPT/HCPCS: 30140; 30520; J1100; J1171; J2250; J2405; J2765; J3010; J3490

== ENCOUNTER → 2025-02-26 | Outpatient (CLI) | payer BC ==
[~2025-02-26] MED LIST changes: -LIDOCAINE 2% 100 MG/5 ML SDV (FOR ANES.) As Ordered ONE; -ONDANSETRON 4MG/2ML VIAL As Ordered ONE; -dexAMETHasone 4 MG/ML 1 ML VIAL As Ordered ONE
== END ==
LOC: M PLAIMG 14:31
PROVIDERS: ATTEND Student in an Organized Health Care Education/Training Program
DX: M54.50 Low back pain, unspecified (principal)

== ENCOUNTER → 2025-03-04 | Outpatient (CLI) | payer BC ==
[2025-03-04 14:44] LABS: ESTIMATED AVERAGE GLUCOSE 108.0 MG/DL (60-110)
[2025-03-04 14:48] LABS: BASO # 0.1 10^3/uL (0.0-0.2); BASO % 0.9 % (0.0-1.0); EOS # 0.0 10^3/uL (0.0-0.5); EOS % 0.6 % (0.0-3.0); LYMPH # 1.5 10^3/uL (1.5-5.0); LYMPH % 22.5 % (24.0-44.0); MONO # 0.3 10^3/uL (0.0-0.8); MONO % 4.9 % (2.0-8.0); NEUTROPHILS # 4.6 10^3/uL (1.5-8.5); NEUTROPHILS % 70.9 % (36.0-66.0); PLATELET COUNT, AUTOMATED 241 10^3/uL (150-450)
[2025-03-04 15:04] LABS: ALT/SGPT 21 U/L (7.0-40); AST/SGOT 27 U/L (<34); CALCIUM LEVEL 8.8 MG/DL (8.5-10.1); CARBON DIOXIDE LEVEL 29 MMOL/L (20-31); CHLORIDE LEVEL 107 MMOL/L (98-107); CHOLESTEROL LEVEL 148 MG/DL (<200); CHOLESTEROL RISK RATIO 3.05 (<5); CREATININE FOR GFR 0.82 MG/DL (0.70-1.30); GLOMERULAR FILTRATION RATE > 90.0 (>56); LDL CHOLESTEROL 90.1 MG/DL (<100); NON-HDL-C 99.5 MG/DL; POTASSIUM SERUM 4.1 MMOL/L (3.5-5.1); SODIUM LEVEL 145 MMOL/L (136-145); TRIGLYCERIDES LEVEL 47 MG/DL (<150)
== END ==
LOC: M LAB 12:50
PROVIDERS: ATTEND Student in an Organized Health Care Education/Training Program
DX: Z00.00 Encounter for general adult medical examination without abnormal findings (principal); B35.1 Tinea unguium